=== PATIENT | female | born 1975 | race Caucasian/White ===

== ENCOUNTER 2018-01-16 10:45 | Inpatient (IN) | payer BC ==
[~2018-01-16] VITALS: Ht 162.6 cm; Wt 95.6 kg
[2018-01-16] VITALS (17 sets, daily range): BP systolic 124–150; BP diastolic 74–93
[~2018-01-16 10:45] MED LIST: ALDACTONE50 MG PO; BIOTIN 5000MCG PO; COZAAR50 MG PO; FLONASE16 G1 BOTH NARES; HYDROCODON-ACE1 EAC7 PO; HYZAAR 100-21 TABLET PO; LOPID600 MG PO; MULTIVITAMIN1 EAC2 PO; PROTONIX40 MG PO; ULTRAM50 MG PO; VITAMIN D-32000 UNI2 PO; WELLBUTRIN XL150 MG PO; ZYRTEC10 M3 PO
[2018-01-16] MEDS ORDERED: CLARITIN,ALAVAR10 MG PO (11:19)
[2018-01-16] MEDS ORDERED: ZANTAC150 MG PO (11:20)
[2018-01-16] MEDS ORDERED: COLACE100 MG PO (11:21)
[2018-01-16] MEDS ORDERED: PRENATAL + DHA1 EAC1 PO (11:21)
[2018-01-16] MEDS ORDERED: SLOW RELEASE I142 M1 PO (11:22)
[2018-01-16 12:41] LABS: BASOPHIL (%) 0.2 % (0-1); EOSINOPHIL (%) 1.3 % (0-5); EOSINOPHIL COUNT 0.1 K/uL (0-0.3); HEMATOCRIT 34.2 % (36.0-46.0); HEMOGLOBIN 10.9 G/DL (11.9-15.5); IMMATURE GRANULOCYTE (%) 0.8 % (0.0-0.7); LYMPHOCYTE (%) 13.7 % (15-42); LYMPHOCYTE COUNT 1.4 K/uL (1.0-2.8); MCH 26.6 PG (29.0-34.0); MCHC 31.9 G/DL (30.0-36.0); MCV 83.4 FL (83-99); MONOCYTE (%) 7.4 % (3-12); MONOCYTE COUNT 0.8 K/uL (0-0.8); NEUTROPHIL (%) 76.6 % (45-76); NEUTROPHIL COUNT 7.8 K/uL (1.8-6.4); PLATELET COUNT 134 K/uL (156-360); RBC DIS.WIDTH-SD 42.5 % (39-53); WHITE BLOOD COUNT 10.2 K/uL (4.1-10.2)
[2018-01-16 13:03] LABS: ALBUMIN 3.1 G/DL (3.2-4.8); ALKALINE PHOSPHATASE 119 IU/L (3-129); ALT (GPT) 11 IU/L (3-49); AST (GOT) 18 IU/L (2-34); CHLORIDE 110 MEQ/L (99-109); CREATININE 0.5 MG/DL (0.6-1.3); GFR ESTIMATE (CALCULATED) > 59 mL/min/; GLUCOSE 102 mg/dL (70-99); POTASSIUM 3.7 MEQ/L (3.7-5.4); SODIUM 141 MEQ/L (136-147); TOTAL BILIRUBIN 0.5 MG/DL (0.0-1.0); TOTAL PROTEIN 5.2 G/DL (6.4-8.3); UREA NITROGEN (BUN) 12 mg/dL (9-23); URIC ACID 4.9 mg/dL (3.1-9.2)
[2018-01-16 16:14] LABS: AMPHETAMINE NEGATIVE (500 ng/mL); BARBITURATES NEGATIVE (200 ng/mL); BENZODIAZEPINES NEGATIVE (150 ng/mL); BUPRENORPHINE NEGATIVE (10 ng/mL); COCAINE NEGATIVE (150 ng/mL); METHADONE NEGATIVE (200 ng/mL); METHAMPHETAMINE NEGATIVE (500 ng/mL); OPIATES (MORPHINE) NEGATIVE (100 ng/mL); OXYCODONE NEGATIVE (100 ng/mL); PHENCYCLIDINE NEGATIVE (25 ng/mL); PROPOXYPHENE NEGATIVE (300 ng/mL); THC CANNABINOIDS NEGATIVE (50 ng/mL); TRICYCLIC ANTIDEPRESSANTS NEGATIVE (300 ng/mL)
[2018-01-17] VITALS (25 sets, daily range): BP systolic 106–152; BP diastolic 62–103
[2018-01-18] VITALS (28 sets, daily range): BP systolic 106–161; BP diastolic 52–101
[2018-01-18] MEDS ORDERED: MOTRIN800 MG PO (05:20)
[2018-01-18] MEDS ORDERED: PERCOCET 5/31 TABLET PO (05:20)
[2018-01-19 03:19] VITALS: BP 115/68
[2018-01-19 06:33] LABS: BASOPHIL (%) 0.4 % (0-1); EOSINOPHIL (%) 2.6 % (0-5); EOSINOPHIL COUNT 0.3 K/uL (0-0.3); HEMATOCRIT 28.4 % (36.0-46.0); HEMOGLOBIN 9.1 G/DL (11.9-15.5); IMMATURE GRANULOCYTE (%) 0.7 % (0.0-0.7); LYMPHOCYTE COUNT 1.6 K/uL (1.0-2.8); MCH 26.8 PG (29.0-34.0); MCV 83.8 FL (83-99); MONOCYTE (%) 10.7 % (3-12); MONOCYTE COUNT 1.2 K/uL (0-0.8); NEUTROPHIL (%) 71.6 % (45-76); NEUTROPHIL COUNT 8.2 K/uL (1.8-6.4); PLATELET COUNT 123 K/uL (156-360); RBC DIS.WIDTH-CV 14.4 % (11.8-14.6); RBC DIS.WIDTH-SD 43.9 % (39-53); RED BLOOD COUNT 3.39 M/uL (3.80-5.20); WHITE BLOOD COUNT 11.4 K/uL (4.1-10.2)
[2018-01-19 07:09] VITALS: BP 108/62
[2018-01-19 16:45] VITALS: BP 132/76
[2018-01-19 19:42] VITALS: BP 135/78
[2018-01-19 23:02] VITALS: BP 129/81
[2018-01-20 03:53] VITALS: BP 140/89
[2018-01-20 07:33] VITALS: BP 124/77
[2018-01-20 10:50] VITALS: BP 117/76
== END 2018-01-20 12:30 | disposition home or self-care (01) | DRG 765 ==
LOC: LDRP-OP 10:45 → 2WEST 10:46
PROVIDERS: Nurse Practitioner; Obstetrics & Gynecology
PROC: 3E0P7VZ Introduction of Hormone into Female Reproductive, Via Natural or Artificial Opening (ICD-10-PCS; 2018-01-16)
PROC: 0U7C7ZZ Dilation of Cervix, Via Natural or Artificial Opening (ICD-10-PCS; 2018-01-16)
PROC: 10907ZC Drainage of Amniotic Fluid, Therapeutic from Products of Conception, Via Natural or Artificial Opening (ICD-10-PCS; 2018-01-17)
PROC: 3E0R3BZ Introduction of Anesthetic Agent into Spinal Canal, Percutaneous Approach (ICD-10-PCS; 2018-01-17)
PROC: 00HU33Z Insertion of Infusion Device into Spinal Canal, Percutaneous Approach (ICD-10-PCS; 2018-01-17)
PROC: 3E033VJ Introduction of Other Hormone into Peripheral Vein, Percutaneous Approach (ICD-10-PCS; 2018-01-17)
PROC: 10D00Z1 Extraction of Products of Conception, Low, Open Approach (ICD-10-PCS; principal; 2018-01-18)
DX: O62.1 Secondary uterine inertia (principal); O62.0 Primary inadequate contractions; O63.0 Prolonged first stage (of labor); O76 Abnormality in fetal heart rate and rhythm complicating labor and delivery; O69.81X0 Labor and delivery complicated by cord around neck, without compression, not applicable or unspecified; O13.4 Gestational [pregnancy-induced] hypertension without significant proteinuria, complicating childbirth; O75.89 Other specified complications of labor and delivery; O99.62 Diseases of the digestive system complicating childbirth; K21.9 Gastro-esophageal reflux disease without esophagitis; O99.12 Other diseases of the blood and blood-forming organs and certain disorders involving the immune mechanism complicating childbirth; D69.6 Thrombocytopenia, unspecified; O99.844 Bariatric surgery status complicating childbirth; O99.214 Obesity complicating childbirth; E66.9 Obesity, unspecified; Z68.29 Body mass index [BMI] 29.0-29.9, adult; Q51.810 Arcuate uterus; Z88.2 Allergy status to sulfonamides; Z79.82 Long term (current) use of aspirin; Z3A.37 37 weeks gestation of pregnancy; Z37.0 Single live birth
CPT/HCPCS: 80053; 82570; 84156; 84550; 85025; 86850; 86900; 86901; C1755; G0378; J0456; J0690; J1170; J1885; J2210; J2274; J3010; J7120